=== PATIENT | female | born 1950 | race Hispanic/Latino ===

== ENCOUNTER 2016-09-09 05:54 | Day surgery (SDC) | payer OTHER ==
[2016-09-02 09:21] VITALS: BMI 43.4
[2016-09-09] MEDS ORDERED: Ropivacaine 0.5% 30ML IV ONE (06:45)
[2016-09-09] MEDS ORDERED: Propofol 10 mg/ml Inj (20 ML) ONE (06:48)
[2016-09-09] MEDS ORDERED: Midazolam 2 MG/2 ML VIAL ONE (06:49)
[2016-09-09] MEDS ORDERED: Succinylcholine 200 mg/10 ml Inj IV ONE (06:49)
[2016-09-09] MEDS ORDERED: ePHEDrine 50 mg/ml Inj ONE (06:49)
[2016-09-09] MEDS ORDERED: Rocuronium 10 mg/ml (5 ml) ONE ×2 (06:49→09:21)
[2016-09-09] MEDS ORDERED: Lactated Ringer's 1,000 ML IV ONE ×4 (07:02→10:30)
[2016-09-09] MEDS ORDERED: MethylPREDNISolone Depo 40 mg/ml Inj ONE (07:07)
[2016-09-09] MEDS ORDERED: Absorbable Gelatin Sponge Size 100 ONE (07:08)
[2016-09-09] MEDS ORDERED: Thrombin Topical 5,000 IU Spray Kit ONE (07:08)
[2016-09-09] MEDS ORDERED: Bupivacaine 0.5% Inj(30mL) ONE (07:08)
[2016-09-09] MEDS ORDERED: Lidocaine 1% Inj (20ml) ONE (07:26)
[2016-09-09] MEDS ORDERED: Dexamethasone 4 mg/1 ml ONE (08:42)
[2016-09-09] MEDS ORDERED: Neostigmine Methylsulfate 3mg/3ml Syringe IV ONE (09:21)
[2016-09-09] MEDS ORDERED: Neostigmine Methylsulfate 2 MG/2 ML ML IV ONE (09:21)
[2016-09-09] MEDS ORDERED: Albuterol HFA 90 mcg/actuation (8 g) INH PRN (11:18)
[2016-09-09] MEDS ORDERED: Albuterol 0.083% Inhal Sol (2.5 mg/3 mL) UD INH ONE (11:30)
--- NOTE | 2016-09-09 11:37 | PCM.ANESB1 ---
Interscalene Block - Brachial Plexus Date of Procedure: 09/09/16 Procedure Performed: Interscalene Block of Brachial Plexus Right - Procedure Interscalene Block of Brachial Plexus: This procedure was explained to the patient that it is for post-operative pain management. Consent was obtained after a thorough discussion with the patient regarding the benefits and possible complications of local anesthetic block of the Brachial Plexus at the Interscalene area. The patient was brought to the Operating Room and standard monitors were applied. Time out was held with the circulating nurse to confirm the correct surgery and appropriate block. After applying Oxygen by nasal cannula and administering IV Sedation, the patient's head was gently rotated away from the ___right___operative shoulder and the anterior scalene groove was carefully palpated. The ultrasound transducer was then applied to the skin in the transverse plane and the brachial plexus was visualized lateral to the carotid artery and in between the anterior and middle scalene muscles. After identification,the anterior lateral portion of the neck was prepped with Betadine solution three times and Lidocaine 1% was injected subcutaneously for topical analgesia. At this point, a # 22 gauge Stimuplex 2 inches insulated needle was inserted into the interscalene groove and directed in a caudal and midline direction. The needle was inserted lateral to the ultrasound transducer in-plane towards the brachial plexus in a [id number] direction. Needle advancement was performed carefully under direct ultrasound visualization. Nerve stimulator was used and twitched of the affected extremity including the hand brachialis muscles, biceps and the deltoid was obtained at a current of __0.3___MA. After repeated negative aspiration,___5__cc of 0.5% Ropivacaine___were injected and this was followed with __15___cc of ___0.5__% ____Ropivacaine . Under ultrasound guidance the local anesthetics were observed surrounding the roots of the brachial plexus. The needle was removed intact and sterile dressing was applied. The patient had stable vital signs, was conscious and in no apparent distress. The patient tolerated the interscalene block of the bracheal plexus well with stable vital signs and was prepared for subsequent surgery.
--- NOTE | 2016-09-09 12:19 | PCM.SURG1 ---
Surgeon's Initial Post Op Note - Surgeon's Notes Surgeon: Anabelle Oil Burner Repairer: AMY Diaz Type of Anesthesia: General Endo, Block Regional Anesthesia Administered By: DR Jose Angel Doll Pre-Operative Diagnosis: post traumatic drangement R shoulder Operative Findings: gr 3 tear R roator cuff. Slap lesion- type 2 anterior to posterior. biceps tendon intraraticular avulsion. a/c joint arthroapthy. subacromail impingement. bursitis subacromial space Post-Operative Diagnosis: as above Operation Performed: arthoscopic rotator cuff- r shoulder. arthroscopic labral repair. arthroscopic biceps tenodesis. arthroscopic p[artial distal claviculectomy. arthroscopic aprtial acromioplasty. arthroscopic busectomy/ lysis of adhesions in subacromial; space Specimen/Specimens Removed: cartilage/bone/synovium Estimated Blood Loss: EBL {In ML}: 20 Blood Products Given: N/A Drains Used: No Drains Post-Op Condition: Good Date of Surgery/Procedure: 09/09/16 Time of Surgery/Procedure: 08:55 (time in room/anaesthesia induction time 7;50)
[2016-09-09 13:47] VITALS: RESP 20
[2016-09-09 15:15] VITALS: TEMP 98.2
[2016-09-09 16:36] VITALS: BP 141/64; PULSE 109; O2SAT 93
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
== END 2016-09-09 17:21 | disposition still patient (30) ==
LOC: H.OPSURG 05:54
PROVIDERS: ATTEND Orthopaedic Surgery
DX: M75.41 Impingement syndrome of right shoulder (principal); J45.909 Unspecified asthma, uncomplicated; G47.33 Obstructive sleep apnea (adult) (pediatric); E03.9 Hypothyroidism, unspecified; I34.1 Nonrheumatic mitral (valve) prolapse; M75.51 Bursitis of right shoulder; S43.431A Superior glenoid labrum lesion of right shoulder, initial encounter; X58.XXXA Exposure to other specified factors, initial encounter

== ENCOUNTER 2016-09-09 17:43 | Inpatient (IN) | payer OTHER, MEDICARE ==
[2016-09-09] MEDS ORDERED: Sodium Chloride 0.9% 500 ML IV STA (18:03)
[2016-09-09] MEDS ORDERED: Albuterol-Ipratrop 3 mg / 0.5 (3 ml) UD INH STA (18:05)
[2016-09-09 18:11] VITALS: BMI 31.1
[2016-09-09] MEDS ORDERED: Albuterol-Ipratrop 3 mg / 0.5 (3 ml) UD ONE (18:13)
--- NOTE | 2016-09-09 18:18 | ED PDOC ---
HPI: General Adult Time Seen by Provider: 09/09/16 17:47 History Per: Patient History/Exam Limitations: no limitations Onset/Duration Of Symptoms: Hrs Have you had recent travel within the past 21 days to any of the following countries: [place], [place], [place] or [place]?: No Additional Complaint(s): Vera Castillo is a 66 year old female, with a previous medical history of luciana disease, hypertension, herniated discs, degenerative disc disease and arthritis, who presents to the ED for evaluation of bilateral foot numbness and lower back pain secondary to awakening from surgery earlier today to repair a torn rotator in her right shoulder. She reports additional symptoms of throat burning, headache and shortness of breath mild. She states throat irritation secondary to being intubated and is unsure if latex tube was used. Patient denies any changes in vision, nausea, vomiting, chest pain, cough, calf pain, rash, itching, bowel/urinary incontinence, throat swelling, throat itching or an inability to swallow. Patient reports numbness in the right foot is improving while the numbness in the left foot is gradually moving up the foot into the calf and thigh and she unable to bear weight on it. She was given morphine in the recovery room for the back pain. Had surgery for shoulder tear today. Was in post op being treated for her symptoms by anesthesia. Not able to walk on left leg so sent to the ED. PMD: Past Medical History Reviewed: Historical Data, Nursing Documentation, Vital Signs Vital Signs: Last Vital Signs Temp 98.9 F 09/09/16 18:07 Pulse 114 H 09/09/16 18:07 Resp 18 09/09/16 18:07 BP 135/67 09/09/16 18:07 Pulse Ox 92 L 09/09/16 18:07 - Medical History PMH: Arthritis, Asthma, HTN, Mitral Valve Prolapse, Sleep Apnea Denies: Chronic Kidney Disease Other PMH: luciana disease, herniated disc, degenerative disc disease - Surgical History Other surgeries: shoulder - Family History Family History: States: Unknown Family Hx - Living Arrangements Living Arrangements: With Family - Social History Alcohol: None Drugs: Denies - Home Medications Home Medications: Ambulatory Orders Medication Instructions Recorded Allopurinol [Zyloprim] 300 mg PO DAILY 09/09/16 Cetirizine HCl [Zyrtec] 10 mg PO DAILY 09/09/16 DULoxetine [Cymbalta] 60 mg PO DAILY 09/09/16 Fluticasone/Salmeterol [Advair 1 each PO BID PRN 09/09/16 250-50 Diskus] Gabapentin [Neurontin] 300 mg PO DAILY 09/09/16 Hydrocodone/Ibuprofen 1 tab PO TID PRN 09/09/16 [Hydrocodone-Ibuprofen 7.5-200] Ibuprofen [Motrin Tab] 200 mg PO TID PRN 09/09/16 Methocarbamol [Robaxin] 750 mg PO BID PRN 09/09/16 Metoprolol Tartrate [Metoprolol 25 mg PO BID 09/09/16 Tartrate] Montelukast [Singulair] 10 mg PO DAILY 09/09/16 Oxybutynin [Ditropan Tab] 10 mg PO DAILY 09/09/16 Thyroid,Pork [[place] Thyroid] 120 mg PO DAILY 09/09/16 Valsartan [Diovan] 320 mg PO DAILY 09/09/16 oxyCODONE/Acetaminophen [Percocet 5 - 325 mg PO Q4 PRN 09/09/16 5/325 mg Tab] - Allergies Allergies/Adverse Reactions: Allergies Allergy/AdvReac Type Severity Reaction Status Date / Time latex Allergy RASH Verified 09/09/16 18:07 shellfish derived Allergy SHORTNESS Verified 09/09/16 18:07 OF BREATH amoxicillin [From Augmentin] AdvReac ITCHING Verified 09/09/16 18:07 clavulanic acid AdvReac ITCHING Verified 09/09/16 18:07 [From Augmentin] levofloxacin [From Levaquin] AdvReac ITCHING Verified 09/09/16 18:07 sesame seed AdvReac RASH Verified 09/09/16 18:07 Review of Systems ROS Statement: Except As Marked, All Systems Reviewed And Found Negative Eyes: Negative for: Vision Change ENT: Positive for: Throat Pain. Negative for: Throat Swelling, Other (throat itching ) Cardiovascular: Negative for: Chest Pain Respiratory: Positive for: Shortness of Breath. Negative for: Cough Gastrointestinal: Negative for: Nausea, Vomiting Genitourinary Female: Negative for: Incontinence Musculoskeletal: Positive for: Back Pain (lower ). Negative for: Other (calf pain) Skin: Negative for: Rash Neurological: Positive for: Numbness (bilateral feet ), Headache Physical Exam - Reviewed Nursing Documentation Reviewed: Yes Vital Signs Reviewed: Yes - Physical Exam Appears: Positive for: Well, Non-toxic, No Acute Distress Head Exam: Positive for: ATRAUMATIC, NORMAL INSPECTION, NORMOCEPHALIC Skin: Positive for: Normal Color, Warm, Dry Eye Exam: Positive for: Normal appearance, EOMI, PERRL. Negative for: Nystagmus ENT: Positive for: Normal ENT Inspection. Negative for: Pharyngeal Erythema, Tonsillar Exudate, Tonsillar Swelling Neck: Positive for: Normal, Painless ROM, Supple Cardiovascular/Chest: Positive for: Regular Rate, Rhythm Respiratory: Positive for: Normal Breath Sounds. Negative for: Decreased Breath Sounds, Accessory Muscle Use, Crackles, Rales, Rhonchi, Wheezing, Respiratory Distress Pulses-Dorsalis Pedis (L): 2+ Pulses-Dorsalis Pedis (R): 2+ Gastrointestinal/Abdominal: Positive for: Normal Exam, Bowel Sounds, Soft. Negative for: Tenderness Back: Positive for: Other (diffuse lower back ). Negative for: L CVA Tenderness , R CVA Tenderness, Vertebral Tenderness Extremity: Positive for: Normal ROM, Calf Tenderness (mild in the left leg), Capillary Refill (< 2 seconds ), Other (strength 4/5 in the left leg and 5/5 in the right. deep and light pressure sensation intact of all extremities). Negative for: Pedal Edema, Deformity, Swelling Neurologic/Psych: Positive for: Alert, Oriented. Negative for: Motor/Sensory Deficits - Laboratory Results Result Diagrams: 09/09/16 18:30 - ECG ECG: Positive for: Interpreted By Me, Viewed By Me ECG Rhythm: Positive for: Sinus Tachycardia - Progress ED Course And Treament: 1857: Stable. Dr. Kirkland to take over care. FU on labs and imaging. Medical Decision Making Medical Decision Making: Initial Plan: * CXR * US duplex lower extremity * CT angio chest * B-type natriuretic peptide * Troponin I * labs * EKG * partial thromboplastin time * prothrombin time * ABG shock pane * duoneb * IV NS 500 ml at 100 ml/hr * solumedrol 125 mg IV * peak flow pre/post treatment * reevaluation Scribe Attestation: Documented by Maria Elena Chance, acting as a scribe for David Brandon MD. Provider Scribe Attestation: All medical record entries made by the Scribe were at my direction and personally dictated by me. I have reviewed the chart and agree that the record accurately reflects my personal performance of the history, physical exam, medical decision making, and the department course for this patient. I have also personally directed, reviewed, and agree with the discharge instructions and disposition. Disposition - Clinical Impression Clinical Impression: Paresthesia, Dyspnea - Patient ED Disposition Is Patient to be Admitted: Transfer of Care - Disposition Disposition: Transfer of Care Disposition Time: 18:58 Condition: FAIR Patient Signed Over To: Orlin Kirkland
[2016-09-09 18:34] LABS: ABG ALLEN TEST YES; ARTERIAL BLOOD GAS HCO3 25.6 mmol/L (21-28); ARTERIAL BLOOD GAS MODE 3L NC; ARTERIAL BLOOD GAS PH 7.43 (7.35-7.45); ARTERIAL BLOOD GAS PO2 61 mm/Hg (80-100)
[2016-09-09 18:39] LABS: BASO # 0.1 K/uL (0.0-0.2); BASO % 0.5 % (0.0-2.0); HEMATOCRIT 40.4 % (34.0-47.0); LYMPH # 0.4 K/uL (1.0-4.3); LYMPH % 3.2 % (20.0-40.0); MEAN CELL VOLUME 96.2 fl (81.0-99.0); MEAN CORPUSCULAR HEMOGLOBIN 32.2 pg (27.0-31.0); MEAN CORPUSCULAR HGB CONC 33.5 g/dL (33.0-37.0); MEAN PLATELET VOLUME 8.6 fl (7.2-11.7); MONO # 0.2 K/uL (0.0-0.8); MONO % 1.4 % (0.0-10.0); NEUT # 11.3 K/uL (1.8-7.0); NEUT % 94.9 % (50.0-75.0); PLATELET COUNT 159 K/uL (130-400); RED CELL DISTRIBUTION WIDTH 13.9 % (11.5-14.5); WHITE BLOOD COUNT 11.9 K/uL (4.8-10.8)
[2016-09-09 18:50] LABS: PARTIAL THROMBOPLASTIN TIME 26.2 SECONDS (23.3-32.5)
[2016-09-09 18:55] LABS: ALB/GLOB RATIO 1.7 (1.0-2.1); ALKALINE PHOSPHATASE 57 U/L (38-126); ALT/SGPT 69 U/L (9-52); AST/SGOT 56 U/L (14-36); BILIRUBIN,TOTAL 0.4 mg/dl (0.2-1.3); BLOOD UREA NITROGEN 16 mg/dl (7-17); CARBON DIOXIDE 23 mmol/L (22-30); CHLORIDE 95 mmol/L (98-107); GFR AFRICAN-AMERICAN > 60; GLUCOSE,RANDOM 154 mg/dL (65-105); POTASSIUM 4.5 MMOL/L (3.6-5.0); SODIUM 132 mmol/l (132-148); TOTAL PROTEIN 7.1 G/DL (6.3-8.2)
[2016-09-09] MEDS ORDERED: Iodixanol 320 MG/ML 100 ML BOTTLE IV ONE (18:56)
[2016-09-09] MEDS ORDERED: Sodium Chloride 0.9% 50 ML IV ONE (18:57)
[2016-09-09 19:10] LABS: NEUTROPHIL 90 % (42-75); TOTAL CELLS COUNTED 100
[2016-09-09 19:12] LABS: LARGE PLATELETS PRESENT
--- NOTE | 2016-09-09 19:22 | US ---
EXAM: US Duplex Bilateral Lower Extremity Veins CLINICAL HISTORY: 66 years old, female; Pain; Leg, lower; Bilateral; Additional info: R/O dvt TECHNIQUE: Real-time ultrasound scan of the veins of the bilateral lower extremities with color Doppler flow, spectral waveform analysis and compression. EXAM DATE/TIME: 09/09/2016 6:02 PM COMPARISON: There are no prior studies for comparison. FINDINGS: Right deep veins: Common femoral, superficial femoral, popliteal and posterior tibial veins were evaluated. All veins examined are compressible. There are no intraluminal filling defects. There is expected blood flow on Doppler imaging. There is change in waveform with augmentation. Left deep veins: Common femoral, superficial femoral, popliteal and posterior tibial veins were evaluated. All veins examined are compressible. There are no intraluminal filling defects. There is expected blood flow on Doppler imaging. There is change in waveform with augmentation. Impression: No deep venous thrombosis in the visualized vascular segments of the lower extremities
--- NOTE | 2016-09-09 20:28 | CT ---
EXAM: CT Angiography Chest With Intravenous Contrast CLINICAL HISTORY: 66 years old, female; Signs and symptoms; Shortness of breath and other: Chest pain; Patient HX: Surgery on rt rotator cuff today; Additional info: Chest pain. Sent phy. Doc with request TECHNIQUE: Axial computed tomographic angiography images of the chest with intravenous contrast using pulmonary embolism protocol. This CT exam was performed using one or more of the following dose reduction techniques: automated exposure control, adjustment of the mA and/or kV according to patient size, and/or use of iterative reconstruction technique. MIP reconstructed images were created and reviewed. Coronal and sagittal reformatted images were created and reviewed. CONTRAST: 95 mL of [id number] administered intravenously. EXAM DATE/TIME: 09/09/2016 6:03 PM COMPARISON: There are no prior studies for comparison. FINDINGS: Artifacts: Motion artifact degrades image quality.Streak artifact degrades image quality. Heart, aorta and Pulmonary arteries: Heart size is normal. There is no pericardial effusion. Aorta is normal in caliber. Streak and motion limit evaluation of pulmonary arteries. Bolus timing limits evaluation pulmonary arteries. There are no central pulmonary emboli. Peripheral vessels cannot be adequately evaluated. Lungs and pleural spaces: Trachea and main bronchi are patent. Upper lung zones are clear of focal infiltrate. There is minimal dependent atelectasis. There is elevation of the right diaphragm with partial right middle lobe atelectasis. There is partial right lower lobe atelectasis. There is minimal atelectasis at the left base. There is linear scarring at the left base. There are no effusions. Mediastinum: There is fatty infiltration of the mediastinum. There mildly prominent mediastinal nodes. There is no hilar adenopathy. Visualized portion the esophagus is unremarkable. Thyroid: Thyroid is not optimally demonstrated. Bones/joints: There is small clips in the right humeral head. There are degenerative changes in the osseus structures. There is deformity of the sternum. Soft tissues: unremarkable Upper abdomen: There are no acute abnormalities in the visualized portion of the abdomen. IMPRESSION: Partial right middle and right lower lobe atelectasis; limited evaluation of pulmonary arteries due to bolus timing, streak and motion, no central pulmonary embolus peripheral vessels cannot be evaluated Additional findings as described above.
[2016-09-09] MEDS ORDERED: Enoxaparin 100 mg Syringe SC STA (20:49)
--- NOTE | 2016-09-09 21:19 | ED PDOC ---
- Laboratory Results Result Diagrams: 09/09/16 18:30 09/09/16 18:30 - ECG O2 Sat by Pulse Oximetry: 95 Medical Decision Making Medical Decision Makin:00 Patient was signed out to me pending imaging results, ED workup and final disposition. 19:21 US duplex FINDINGS: Right deep veins: Common femoral, superficial femoral, popliteal and posterior tibial veins were evaluated. All veins examined are compressible. There are no intraluminal filling defects. There is expected blood flow on Doppler imaging. There is change in waveform with augmentation. Left deep veins: Common femoral, superficial femoral, popliteal and posterior tibial veins were evaluated. All veins examined are compressible. There are no intraluminal filling defects. There is expected blood flow on Doppler imaging. There is change in waveform with augmentation. Impression: No deep venous thrombosis in the visualized vascular segments of the lower extremities 20:27 CT angion FINDINGS: Artifacts: Motion artifact degrades image quality.Streak artifact degrades image quality. Heart, aorta and Pulmonary arteries: Heart size is normal. There is no pericardial effusion. Aorta is normal in caliber. Streak and motion limit evaluation of pulmonary arteries. Bolus timing limits evaluation pulmonary arteries. There are no central pulmonary emboli. Peripheral vessels cannot be adequately evaluated. Lungs and pleural spaces: Trachea and main bronchi are patent. Upper lung zones are clear of focal infiltrate. There is minimal dependent atelectasis. There is elevation of the right diaphragm with partial right middle lobe atelectasis. There is partial right lower lobe atelectasis. There is minimal atelectasis at the left base. There is linear scarring at the left base. There are no effusions. Mediastinum: There is fatty infiltration of the mediastinum. There mildly prominent mediastinal nodes. There is no hilar adenopathy. Visualized portion the esophagus is unremarkable. Thyroid: Thyroid is not optimally demonstrated. Bones/joints: There is small clips in the right humeral head. There are degenerative changes in the osseus structures. There is deformity of the sternum. Soft tissues: unremarkable Upper abdomen: There are no acute abnormalities in the visualized portion of the abdomen. IMPRESSION: Partial right middle and right lower lobe atelectasis; limited evaluation of pulmonary arteries due to bolus timing, streak and motion, no central pulmonary embolus peripheral vessels cannot be evaluated Additional findings as described above. 20:56 Patient was seen and examined at bedside. She remains hypoxic, tachycardic and reports being unable to take in a deep breath. Patient will be treated for clinical pulmonary embolism and will be admitted to obs-Tele Scribe Attestation: Documented by Maria Elena Chance, acting as a scribe for Orlin Kirkland MD. Provider Scribe Attestation: All medical record entries made by the Scribe were at my direction and personally dictated by me. I have reviewed the chart and agree that the record accurately reflects my personal performance of the history, physical exam, medical decision making, and the department course for this patient. I have also personally directed, reviewed, and agree with the discharge instructions and disposition. Disposition - Clinical Impression Clinical Impression: Paresthesia, Dyspnea - POA Present On Arrival: None - Disposition Disposition: Hospitalized as Observation Patient Disposition Time: 21:00 Condition: FAIR
[2016-09-10] MEDS ORDERED: IBUPROFEN PO PRN (00:28)
[2016-09-10] MEDS ORDERED: Fluticasone-Salmeterol 250-50mcg Diskus INH PRN (00:28)
[2016-09-10] MEDS ORDERED: Methocarbamol 750 MG TAB PO PRN (00:28)
[2016-09-10] MEDS ORDERED: HYDROCODONE PO PRN (00:28)
[2016-09-10] MEDS: Oxycodone/Acetaminophen 5/325 mg Tab PO PRN ×4 (00:55→17:49)
[2016-09-10] MEDS ORDERED: Albuterol-Ipratrop 3 mg / 0.5 (3 ml) UD INH STA ×2 (01:02→11:22)
[2016-09-10] MEDS ORDERED: Enoxaparin 80 mg Syringe SC SCH (09:00)
--- NOTE | 2016-09-10 10:41 | CP.PCM.CON ---
History of Present Illness - History of Present Illness History of Present Illness: Asked to see this 66 year old female who was admitted from the emergency room because of weakness in the LE's, but also complaining of SOB 4 hours after having orthopedic surgery of the right rotator cuff. A pulmonary CTA was inconclusive for PE and a V/Q lung scan is currently pending. She does have a history of 'bronchospasm' as well as allergic rhinitis and posterior rhinorrhea , using LABA/ICS at home. She also has a history od JOSHUA for many years using nCPAP at home on a nightly basis. She does have regular medical followup as an outpatient and is compliant with all medications and equipment. Her CT scan now did show a right basal area of infiltrate/atelectasis, but was otherwise relatively unremarkable. A venous duplex scan of the LE's did not reveal any DVT. 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) Chewing Tobacco Use: No Cigar Use: No Alcohol: Social Drugs: Denies - CARDIAC Hx Hypertension: Yes Hx Mitral Valve Prolapse: Yes - PULMONARY Hx Asthma: Yes Hx Sleep Apnea: Yes - NEUROLOGICAL Other/Comment: NUMBNESS RIGHT HAND - HEENT Hx HEENT Problems: No - RENAL Hx Chronic Kidney Disease: No - ENDOCRINE/METABOLIC Hx Endocrine Disorders: Yes (Sara disease) - HEMATOLOGICAL/ONCOLOGICAL Hx Blood Disorders: No - INTEGUMENTARY Hx Dermatological Problems: No - MUSCULOSKELETAL/RHEUMATOLOGICAL Hx Arthritis: Yes Hx Falls: No Hx Herniated Disk: Yes - GASTROINTESTINAL Hx Gastrointestinal Disorders: No - GENITOURINARY/GYNECOLOGICAL Hx Genitourinary Disorders: No - PSYCHIATRIC Hx Substance Use: No - SURGICAL HISTORY Hx Surgeries: Yes Hx Hysterectomy: Yes (2001) Hx Joint Replacement: Yes (BILATERAL KNEE REPLACEMENT 2010) Other/Comment: REMOVAL OF LEFT TAMPLE ARTERY 2011 - ANESTHESIA Hx Anesthesia: Yes Hx Anesthesia Reactions: Yes (VOMITTING) Hx Malignant Hyperthermia: No Meds Allergies/Adverse Reactions: Allergies Allergy/AdvReac Type Severity Reaction Status Date / Time latex Allergy RASH Verified 09/09/16 18:07 shellfish derived Allergy SHORTNESS Verified 09/09/16 18:07 OF BREATH amoxicillin [From Augmentin] AdvReac ITCHING Verified 09/09/16 18:07 clavulanic acid AdvReac ITCHING Verified 09/09/16 18:07 [From Augmentin] levofloxacin [From Levaquin] AdvReac ITCHING Verified 09/09/16 18:07 sesame seed AdvReac RASH Verified 09/09/16 18:07 - Medications Medications: Current Medications Allopurinol (Zyloprim) 300 mg PO DAILY [facility] Last Admin: 09/10/16 10:00 Dose: 300 mg Duloxetine HCl (Cymbalta) 60 mg PO DAILY [facility] Last Admin: 09/10/16 09:55 Dose: 60 mg Enoxaparin Sodium (Lovenox) 70 mg SC DAILY [facility] PRN Reason: Protocol Gabapentin (Neurontin) 300 mg PO DAILY [facility] Last Admin: 09/10/16 09:59 Dose: 300 mg Home Med (Hydrocodone/Ibuprofen [Hydrocodone-Ibuprofen 7.5-200]) 1 tab PO BID PRN PRN Reason: Pain, moderate (4-7) Ibuprofen (Motrin Oral Susp) 200 mg PO TID PRN PRN Reason: Pain, moderate (4-7) Loratadine (Claritin) 10 mg PO DAILY [facility] Last Admin: 09/10/16 09:54 Dose: 10 mg Methocarbamol (Robaxin) 750 mg PO BID PRN PRN Reason: Pain, moderate (4-7) Metoprolol Tartrate (Lopressor) 25 mg PO BID [facility] Last Admin: 09/10/16 09:57 Dose: 25 mg Montelukast Sodium (Singulair) 10 mg PO DAILY [facility] Last Admin: 09/10/16 09:59 Dose: 10 mg Oxybutynin Chloride (Ditropan Tab) 10 mg PO DAILY [facility] Last Admin: 09/10/16 09:56 Dose: 10 mg Oxycodone/Acetaminophen (Percocet 5/325 Mg Tab) 1 tab PO Q4 PRN PRN Reason: Pain, moderate (4-7) Stop: 09/13/16 00:47 Last Admin: 09/10/16 09:04 Dose: 1 tab Fluticasone/Salmeterol (Advair Diskus 250/50) 1 puff INH BID [facility] Thyroid ([place] Thyroid) 120 mg PO DAILY [facility] Valsartan (Diovan) 320 mg PO DAILY [facility] Last Admin: 09/10/16 09:56 Dose: 320 mg Physical Exam - Additional Findings Additional findings: Obese female in no acute distress, cooperative with the exam. Speech is fluent and memory is intact. Flushed facies, no cyanosis or jaundice. No palpable lymphadenopathy. RUE immobilized in sling, shoulder dressing intact. Small varicosities of both ankles noted. No calf tenderness, no palpable venous cords. Neck is supple and trachea midline, no visible JVD. No dullness on chest percussion anteriorly. Breath sounds are present bilaterally with bronchial breathing and egophony in the RLL posteriorly. No audible wheezing, occasional dependant rhonchi, rare dependant dry rales. Heart sounds are well heard, rhythm regular. Results - Vital Signs Recent Vital Signs: Last Vital Signs Temp 98.2 F 09/10/16 08:35 Pulse 90 09/10/16 08:35 Resp 18 09/10/16 08:35 BP 103/66 09/10/16 09:57 Pulse Ox 92 L 09/10/16 08:35 - Labs Result Diagrams: 09/09/16 18:30 09/09/16 18:30 Assessment & Plan (1) Pulmonary infiltrate present on computed tomography Status: Acute Priority: High Comment: Right basal infiltrate with suspected volume loss; agree that acute PE needs further investigation to rule it out. Likely atelectatic segment with potential pneumonia in view of recent surgery/anesthesia and drying effect of anticholinergic medications taken as an outpatient. - Assessment and Plan (Free Text) Plan: Will follow,thank you. - Date & Time Date: 09/10/16 Time: 10:51
[2016-09-10] MEDS: Fluticasone-Salmeterol 250-50mcg Diskus INH SCH ×2 (11:40→17:52)
--- NOTE | 2016-09-10 11:40 | RAD ---
HISTORY: dyspnea COMPARISON: No prior. FINDINGS: LUNGS: Right lower lobe opacity may represent some combination of atelectasis/infiltrate and effusion. . Central pulmonary vasculature is slightly increased PLEURA: No significant pleural effusion identified, no pneumothorax apparent. CARDIOVASCULAR: Cardiomegaly. OSSEOUS STRUCTURES: Small metallic fixation anchor overlies right humeral head. Mild degenerative changes both shoulder girdles. Mild multilevel degenerative spondylosis of the thoracic spine VISUALIZED UPPER ABDOMEN: Normal. OTHER FINDINGS: None. IMPRESSION: Right lower lobe opacity may represent some combination of atelectasis/infiltrate and effusion. Central pulmonary vascular slightly increased Marked cardiomegaly.
--- NOTE | 2016-09-10 13:50 | CP.PCM.HP ---
History of Present Illness - History of Present Illness History of Present Illness: 66 year old female w/ PMHx of luciana disease, hypertension, herniated discs, degenerative disc disease and arthritis, who presented to the ED for evaluation of bilateral foot numbness and lower back pain after surgery earlier today to repair a torn rotator in her right shoulder. Also she reported headache and shortness of breath. Patient denied any changes in vision, nausea, vomiting, chest pain, cough, calf pain, rash, itching, bowel/urinary changes. Patient was admitted due to clinical signs of PE (hypoxia/tachycardia) though CT scan of Chest was inconclusive. Patient was seen and examined this morning. Patient reports improvement of symptoms though leg numbness, hypoxia continue to persist. No pain reported. Present on Admission - Present on Admission Any Indicators Present on Admission: No Review of Systems - Review of Systems All systems: reviewed and no additional remarkable complaints except - Respiratory Respiratory: Dyspnea - Neurological Neurological: Paresthesias 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) Chewing Tobacco Use: No Cigar Use: No Alcohol: Social Drugs: Denies - CARDIAC Hx Hypertension: Yes Hx Mitral Valve Prolapse: Yes - PULMONARY Hx Asthma: Yes Hx Sleep Apnea: Yes - NEUROLOGICAL Other/Comment: NUMBNESS RIGHT HAND - HEENT Hx HEENT Problems: No - RENAL Hx Chronic Kidney Disease: No - ENDOCRINE/METABOLIC Hx Endocrine Disorders: Yes (Luciana disease) - HEMATOLOGICAL/ONCOLOGICAL Hx Blood Disorders: No - INTEGUMENTARY Hx Dermatological Problems: No - MUSCULOSKELETAL/RHEUMATOLOGICAL Hx Arthritis: Yes Hx Falls: No Hx Herniated Disk: Yes - GASTROINTESTINAL Hx Gastrointestinal Disorders: No - GENITOURINARY/GYNECOLOGICAL Hx Genitourinary Disorders: No - PSYCHIATRIC Hx Substance Use: No - SURGICAL HISTORY Hx Surgeries: Yes Hx Hysterectomy: Yes (2001) Hx Joint Replacement: Yes (BILATERAL KNEE REPLACEMENT 2010) Other/Comment: REMOVAL OF LEFT TAMPLE ARTERY 2011 - ANESTHESIA Hx Anesthesia: Yes Hx Anesthesia Reactions: Yes (VOMITTING) Hx Malignant Hyperthermia: No Meds Allergies/Adverse Reactions: Allergies Allergy/AdvReac Type Severity Reaction Status Date / Time latex Allergy RASH Verified 09/09/16 18:07 shellfish derived Allergy SHORTNESS Verified 09/09/16 18:07 OF BREATH amoxicillin [From Augmentin] AdvReac ITCHING Verified 09/09/16 18:07 clavulanic acid AdvReac ITCHING Verified 09/09/16 18:07 [From Augmentin] levofloxacin [From Levaquin] AdvReac ITCHING Verified 09/09/16 18:07 sesame seed AdvReac RASH Verified 09/09/16 18:07 Physical Exam - Constitutional Appears: Well, Non-toxic, No Acute Distress - Head Exam Head Exam: ATRAUMATIC, NORMAL INSPECTION, NORMOCEPHALIC - Eye Exam Eye Exam: EOMI, Normal appearance, PERRL - Neck Exam Neck exam: Positive for: Normal Inspection - Respiratory Exam Respiratory Exam: Clear to Auscultation Bilateral, NORMAL BREATHING PATTERN. absent: Rales, Rhonchi, Wheezes - Cardiovascular Exam Cardiovascular Exam: REGULAR RHYTHM, +S1, +S2 - GI/Abdominal Exam GI & Abdominal Exam: Normal Bowel Sounds, Soft. absent: Tenderness Additional comments: obese - Extremities Exam Extremities exam: Positive for: normal inspection (except for surgical dressing on right shoulder, cdi). Negative for: calf tenderness, pedal edema - Neurological Exam Neurological exam: Alert, Oriented x3 - Psychiatric Exam Psychiatric exam: Normal Affect, Normal Mood - Skin Skin Exam: Dry, Intact, Normal Color, Warm Results - Vital Signs Recent Vital Signs: Last Vital Signs Temp 98.5 F 09/10/16 12:36 Pulse 88 09/10/16 12:36 Resp 18 09/10/16 12:36 BP 107/63 09/10/16 12:36 Pulse Ox 93 L 09/10/16 12:36 - Labs Result Diagrams: 09/09/16 18:30 09/09/16 18:30 Assessment & Plan (1) Dyspnea Assessment and Plan: s/p right rotator cuff repair POD #1 associated with tachycardia (now resolving) CT scan inconclusive for PE, will obtain V/Q scan today Lovenox at treatment dose Pulmonary consulted, appreciate recommendations Monitor resp. status Status: Acute (2) S/P rotator cuff repair Assessment and Plan: s/p right shoulder rotator cuff repair POD #[address] Anabelle Ahn consulted, appreciate recommendations Pain control as needed Status: Acute (3) Pulmonary infiltrate present on computed tomography Assessment and Plan: pulmonary consulted, appreciate recommendations Status: Acute Priority: High (4) Paresthesia Assessment and Plan: Bilateral lower extremities, no motor deficits Neurology consulted, appreciated recommendations u/s for DVTs negative Status: Acute
--- NOTE | 2016-09-10 15:43 | NM ---
COMPARISON: September 09, 2016. CT angiogram TECHNIQUE: 35.65 mCi technetium 99-m DTPA aerosol. 4.65 mCI technetium 99-m MAA administered intravenously. FINDINGS: VENTILATION COMPONENT: Ventilation defect at the right base corresponds to findings on recent CT angiogram and chest x-ray PERFUSION COMPONENT: Matched defects right lower lobe, right middle lobe. IMPRESSION: Intermediate probability ventilation perfusion scan for pulmonary embolism. Triple matched defect corresponding to the right lower lobe right middle lobe. The modified PIOPED criteria for diagnosis of PE determine the probability of PE following a VQ scan : Levels of probability Intermediate Probability triple match : Solitary moderate-large matching segmental defect with matching radiograph difficult to characterize as high probability or low probability
[2016-09-10] MEDS: THYROID 30 MG TAB PO SCH (16:00)
[2016-09-10] MEDS: Enoxaparin 100 mg Syringe SC SCH ×2 (16:01→23:57)
--- NOTE | 2016-09-10 16:21 | CON ---
DATE: 09/10/2016 CHIEF COMPLAINT: Paresthesias, especially in the bilateral feet as well as the left leg and left leg heaviness. HISTORY OF PRESENTING ILLNESS: A 66-year-old woman with past medical history of Sara's disease on [place] Thyroid, hypertension, cervical and lumbar herniated disks, degenerative disk disease, arth ritis who presented to the Emergency Room for evaluation for bilateral foot numbness and lower back p ain. She said the lower back pain has been chronic in nature, but after her repair and prolonged pos ition of her right shoulder rotator cuff surgery, she started to have numbness of her leg and tinglin g sensation, especially her left leg more than her right and left leg felt heavier. She is chronical ly deconditioned and overweight for her height and weight. Currently, she was seen by pulmonology fo r her hypoxia and tachycardia and her CT scan of the chest was inconclusive, was going for a VQ scan. Currently, she still has some chronic low back pain radiating down the left leg with some paresthes ias and numbness over both feet. She is undergoing a CAT scan of her lumbosacral spine. She is on m ethocarbamol, gabapentin and Cymbalta for neuropathic pain. PAST MEDICAL HISTORY: Sara's disease, hypertension, chronic herniated disk in cervical and lumb ar area, degenerative disk disease, arthritis. REVIEW OF SYSTEMS: A 14-point is negative except for above in the HPI. ALLERGIES: LATEX, SHELLFISH AMOXICILLIN/CLAVULANIC ACID. MEDICATIONS: Reviewed via nurse's reconciliation sheet. SOCIAL HISTORY: No illicit drug use, smoking, or ETOH abuse. FAMILY HISTORY: Noncontributory. PHYSICAL EXAMINATION: VITAL SIGNS: Temperature 98, pulse rate 88, blood pressure 107/63, respiratory rate of 18, oxygen sa turation 93% via room air. GENERAL: The patient is lying in bed, in no acute distress. HEENT: Atraumatic, normocephalic. PERRLA. Extraocular muscles intact. NECK: Supple, no JVD, no adenopathy noted. LUNGS: Clear to auscultation. No adventitious sounds. HEART: S1, S2, normal rate and rhythm. No murmurs, rubs or gallops. ABDOMEN: Soft, nontender, nondistended. Bowel sounds present. She is obese. EXTREMITIES: Positive for normal inspection except for some surgical dressing on her right shoulder for rotator cuff surgery. Otherwise, no pedal edema, no clubbing. Peripheral pulses 2+ felt bilater ally. NEUROLOGIC: The patient is alert, oriented to person, place, month and year. Speech is fluent, with out any errors. Cranial nerves II-XII intact. MOTOR: Moves all extremities equally, but has difficulty lifting up both legs in the air due to low back pain. She feels like her left leg is heavy. Toes are downgoing bilaterally. SENSORY: Decreased light touch and pinprick up to the calves bilaterally. Decreased vibration of th e toes. DEEP TENDON REFLEXES: 2+ throughout, 1 at the knees and absent at the ankles. COORDINATION: [id number] intact. GAIT: Deferred for now. LABORATORIES: Sodium is 132, potassium 4.5, chloride 95, carbon dioxide 23, BUN is 16, creatinine 0. 6, random glucose 154. ASSESSMENT AND PLAN: This is a 66-year-old obese woman with past medical history of chronic lumbosac ral pain as well as chronic cervical pain with history of herniated disk, hypertension, degenerative disk disease as well as arthritis, status post right shoulder rotator cuff surgery. After surgery, ken flores, a few hours later from prolonged position, developed low back pain radiating down both legs and paresthesias, especially in the left leg and foot more than the right and heaviness of left leg. Likely, her presentation is secondary to her chronic lumbosacral disease from prolonged positions d uring surgery causing paresthesias. At this time, I recommend: 1. Continue with methocarbamol and her dosage of Cymbalta. In addition, we can increase her gabapen tin to 300 mg p.o. t.i.d. for neuropathic pain relief. Can also add alpha lipoic acid 600 mg p.o. b. i.d. for neuropathic pain from a natural aspect. 2. Will need physical therapy and may need some subacute rehabilitation for gait and balance and mus leonie strengthening also for lumbosacral exercises. 3. Counseled on weight reduction. 4. 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 5. At this time, continue with current present medical management. No further neurological workup n eeded at this time. Will sign off. Please reconsult as necessary. Dwayne Cedillo MD cc: [phone] TT: 09/10/2016 16:20:51 Confirmation # [id number] Dictation # [id number] en
--- NOTE | 2016-09-10 16:30 | CT ---
PROCEDURE: CT Lumbar Spine without contrast HISTORY: Lower extremity radiculopathy COMPARISON: No prior study available comparison. TECHNIQUE: Axial computed tomography images were obtained of the lumbar spine without the use of intravenous contrast. Coronal and sagittal reformatted images were created and reviewed. Radiation dose: Total exam DLP = 1375.99 mGy-cm. This CT exam was performed using one or more of the following dose reduction techniques: Automated exposure control, adjustment of the mA and/or kV according to patient size, and/or use of iterative reconstruction technique. FINDINGS: VERTEBRAE: Current study reveals no acute compression fractures nor retropulsed fragments. Vertebral bodies exhibit relatively normal stature. There is mild dextroscoliosis centered at approximately the L2-L3 level. Slight posterior subluxation L2 over L3 and and L1 over L2. The remaining vertebral bodies otherwise exhibit relatively normal alignment. Facets normally aligned. Multilevel degenerative spondylosis present. DISCS/SPINAL CANAL/NEURAL FORAMINA: Multilevel degenerative is present. L1-2: Marked disc space narrowing with vacuum disc phenomena and endplate eburnation. . There is slight uncovering of the posterior inferior surface of the disc with mild broad-based bulge of the posterior annulus. The overall central canal does appear adequate. Facets are mildly hypertrophic. The exit foramina appear narrowed along the proximal margins. Left lateral syndesmophyte is present. At the L2-L3 level, there is also marked disc space narrowing with vacuum disc phenomena and mild endplate eburnation slight uncovering of the posterior inferior surface of the disc with small broad-based ridge complex. Left lateral syndesmotic fight formation is present. Central canal appears adequate. Facet joints are hypertrophic Exit foramina are stenotic on the left and adequate on the right. At the L3-L4 level, there is mild posterior disc space narrowing. Small broad-based disc bulge ridge complex results in some flattening of the ventral surface of the thecal sac. Central canal does appear adequate. Facets are hypertrophic. . Exit foramina appear adequate. At the L4-L5 level, there is mild posterior disc space narrowing. Small amount of vacuum disc phenomena is present. Small broad-based disc bulge ridge complex with moderate to fairly significant hypertrophic facets. Changes result in bilateral lateral cyst recess stenosis. The facets also encroach and compressed post lateral borders of the thecal sac. Exit foramina appear marginal to adequate. The L5-S1 level, there is disc space narrowing more so along the posterior disc margin and vacuum disc phenomena. Small central and bilateral slightly larger on the left than right disc bulge flattens the ventral surface of the thecal sac. Facets are quite hypertrophic at this level. The overall central canal appears adequate. Exit foramina are also adequate on the left and stenotic on the right. PARASPINAL SOFT TISSUES: Unremarkable. OTHER FINDINGS: None. IMPRESSION: No acute compression fractures. Multilevel degenerative spondylosis on. There is also on slight post to subluxation L1 over L2 and L2 over L3 with mild to moderate dextroscoliosis as detailed above.
[2016-09-10] MEDS: Albuterol-Ipratrop 3 mg / 0.5 (3 ml) UD INH SCH (19:15)
[2016-09-11] MEDS: Oxycodone/Acetaminophen 5/325 mg Tab PO PRN ×6 (00:22→19:05)
[2016-09-11 06:49] LABS: HEMATOCRIT 37.2 % (34.0-47.0); MEAN CELL VOLUME 95.9 fl (81.0-99.0); MEAN CORPUSCULAR HEMOGLOBIN 32.9 pg (27.0-31.0); MEAN CORPUSCULAR HGB CONC 34.3 g/dL (33.0-37.0); RED CELL DISTRIBUTION WIDTH 13.9 % (11.5-14.5); WHITE BLOOD COUNT 11.1 K/uL (4.8-10.8)
[2016-09-11 07:35] LABS: ALB/GLOB RATIO 1.5 (1.0-2.1); ALKALINE PHOSPHATASE 57 U/L (38-126); ALT/SGPT 50 U/L (9-52); AST/SGOT 33 U/L (14-36); BILIRUBIN,TOTAL 0.5 mg/dl (0.2-1.3); BLOOD UREA NITROGEN 12 mg/dl (7-17); CALCIUM 8.8 mg/dL (8.4-10.2); CARBON DIOXIDE 28 mmol/L (22-30); CHLORIDE 101 mmol/L (98-107); GFR AFRICAN-AMERICAN > 60; GLUCOSE,RANDOM 111 mg/dL (65-105); POTASSIUM 4.2 MMOL/L (3.6-5.0); SODIUM 136 mmol/l (132-148); TOTAL PROTEIN 6.4 G/DL (6.3-8.2)
[2016-09-11] MEDS: Albuterol-Ipratrop 3 mg / 0.5 (3 ml) UD INH SCH (07:58)
[2016-09-11] MEDS ORDERED: Enoxaparin 80 mg Syringe SC SCH (09:00)
[2016-09-11] MEDS: THYROID 30 MG TAB PO SCH (09:22)
[2016-09-11] MEDS: Fluticasone-Salmeterol 250-50mcg Diskus INH SCH ×2 (09:22→16:39)
[2016-09-11] MEDS: Enoxaparin 100 mg Syringe SC SCH (09:29)
--- NOTE | 2016-09-11 09:51 | CP.PCM.PN ---
Subjective - Date & Time of Evaluation Date of Evaluation: 09/11/16 Time of Evaluation: 09:41 - Subjective Subjective: Seen on AM rounds in telemetry. Using her own nCPAP device overnight, slept well, more rested. Vital signs are stable, remains afebrile, oxygenation is good. Lung scan was also inconclusive with a matched ventilation and perfusion defect in the right lower lobe. On exam there is slightly better air entry in the right base posteriorly, but bronchial breathing and egophony are still present there. No audible wheezes are heard, no rub, few medium rales are present posteriorly. On further review of her initial CTA there is definitely and area of consolidation in the right lung base posteriorly with elevation of the right hemidiaphragm. I would treat her for pneumonia and atelectasis with comorbid JOSHUA and 'asthma'. I still feel the probability of PE is low in this patient based on the radiographic findings. Maintain LMWH for DVT prophylaxis while hospitalized and use ASA 325MG daily after discharge. Objective - Vital Signs/Intake and Output Vital Signs (last 24 hours): Temp Pulse Resp BP Pulse Ox 98.5 F 79 16 135/81 95 09/11/16 08:24 09/11/16 09:26 09/11/16 08:24 09/11/16 09:26 09/11/16 08:24 - Medications Medications: Current Medications Albuterol Sulfate (Albuterol 0.083% Inhal April (2.5 Mg/3 Ml) Ud) 2.5 mg INH RQ4 PRN PRN Reason: Shortness of Breath Allopurinol (Zyloprim) 300 mg PO DAILY [facility] Last Admin: 09/11/16 09:30 Dose: 300 mg Duloxetine HCl (Cymbalta) 60 mg PO DAILY [facility] Last Admin: 09/11/16 09:25 Dose: 60 mg Enoxaparin Sodium (Lovenox) 90 mg SC Q12 [facility] PRN Reason: Protocol Last Admin: 09/11/16 09:29 Dose: 90 mg Gabapentin (Neurontin) 300 mg PO DAILY [facility] Last Admin: 09/11/16 09:30 Dose: 300 mg Home Med (Hydrocodone/Ibuprofen [Hydrocodone-Ibuprofen 7.5-200]) 1 tab PO BID PRN PRN Reason: Pain, moderate (4-7) Ipratropium [place] (Atrovent) 0.5 mg IH RQID [facility] Loratadine (Claritin) 10 mg PO DAILY [facility] Last Admin: 09/11/16 09:24 Dose: 10 mg Metoprolol Tartrate (Lopressor) 25 mg PO BID [facility] Last Admin: 09/11/16 09:26 Dose: 25 mg Montelukast Sodium (Singulair) 10 mg PO DAILY [facility] Last Admin: 09/11/16 09:30 Dose: 10 mg Oxybutynin Chloride (Ditropan Tab) 10 mg PO DAILY [facility] Last Admin: 09/11/16 09:26 Dose: 10 mg Oxycodone/Acetaminophen (Percocet 5/325 Mg Tab) 1 tab PO Q4 PRN PRN Reason: Pain, moderate (4-7) Stop: 09/14/16 00:15 Last Admin: 09/11/16 09:21 Dose: 1 tab Oxycodone/Acetaminophen (Percocet 5/325 Mg Tab) 2 tab PO Q6 PRN PRN Reason: Pain, severe (8-10) Stop: 09/14/16 00:16 Last Admin: 09/11/16 06:31 Dose: 2 tab Fluticasone/Salmeterol (Advair Diskus 250/50) 1 puff INH BID [facility] Last Admin: 09/11/16 09:22 Dose: 1 inhaler Thyroid ([place] Thyroid) 120 mg PO DAILY [facility] Last Admin: 09/11/16 09:22 Dose: 120 mg Valsartan (Diovan) 320 mg PO DAILY [facility] Last Admin: 09/11/16 09:25 Dose: 320 mg - Labs Labs: 09/11/16 05:20 09/11/16 05:20 PT 10.3 SECONDS (9.6-11.2) 09/09/16 18:30 INR 0.99 (0.92-1.08) 09/09/16 18:30 APTT 26.2 SECONDS (23.3-32.5) 09/09/16 18:30 Assessment and Plan (1) Pulmonary infiltrate present on computed tomography Status: Acute (2) Pneumonia Status: Acute (3) Atelectasis Status: Acute
[2016-09-11] MEDS: Ipratropium 0.02% Inhal Soln (0.5 mg/2.5 ml) UD IH SCH ×3 (12:08→19:29)
--- NOTE | 2016-09-11 15:36 | CP.PCM.PN ---
Subjective - Date & Time of Evaluation Date of Evaluation: 09/11/16 Time of Evaluation: 07:33 - Subjective Subjective: Patient seen and examined at bedside. No acute events overnight. Patient dyspnea improving. Patient with improving bilateral lower extremity numbness, right is no long existent. Patient seen by Pulmonary and Neurology. VQ scan completed yesterday. No chest pain, abdominal pain. Did not participate in PT yesterday. Objective - Vital Signs/Intake and Output Vital Signs (last 24 hours): Temp Pulse Resp BP Pulse Ox 97.6 F 79 18 127/75 96 09/11/16 12:34 09/11/16 12:34 09/11/16 12:34 09/11/16 12:34 09/11/16 12:34 - Medications Medications: Current Medications Albuterol Sulfate (Albuterol 0.083% Inhal April (2.5 Mg/3 Ml) Ud) 2.5 mg INH RQ4 PRN PRN Reason: Shortness of Breath Allopurinol (Zyloprim) 300 mg PO DAILY [facility] Last Admin: 09/11/16 09:30 Dose: 300 mg Duloxetine HCl (Cymbalta) 60 mg PO DAILY [facility] Last Admin: 09/11/16 09:25 Dose: 60 mg Enoxaparin Sodium (Lovenox) 30 mg SC Q12 [facility] PRN Reason: Protocol Gabapentin (Neurontin) 300 mg PO DAILY [facility] Last Admin: 09/11/16 09:30 Dose: 300 mg Home Med (Hydrocodone/Ibuprofen [Hydrocodone-Ibuprofen 7.5-200]) 1 tab PO BID PRN PRN Reason: Pain, moderate (4-7) Ipratropium [place] (Atrovent) 0.5 mg IH RQID [facility] Last Admin: 09/11/16 12:08 Dose: 0.5 mg Loratadine (Claritin) 10 mg PO DAILY [facility] Last Admin: 09/11/16 09:24 Dose: 10 mg Metoprolol Tartrate (Lopressor) 25 mg PO BID [facility] Last Admin: 09/11/16 09:26 Dose: 25 mg Montelukast Sodium (Singulair) 10 mg PO DAILY [facility] Last Admin: 09/11/16 09:30 Dose: 10 mg Oxybutynin Chloride (Ditropan Tab) 10 mg PO DAILY [facility] Last Admin: 09/11/16 09:26 Dose: 10 mg Oxycodone/Acetaminophen (Percocet 5/325 Mg Tab) 1 tab PO Q4 PRN PRN Reason: Pain, moderate (4-7) Stop: 09/14/16 00:15 Last Admin: 09/11/16 09:21 Dose: 1 tab Oxycodone/Acetaminophen (Percocet 5/325 Mg Tab) 2 tab PO Q6 PRN PRN Reason: Pain, severe (8-10) Stop: 09/14/16 00:16 Last Admin: 09/11/16 12:52 Dose: 2 tab Fluticasone/Salmeterol (Advair Diskus 250/50) 1 puff INH BID [facility] Last Admin: 09/11/16 09:22 Dose: 1 inhaler Thyroid ([place] Thyroid) 120 mg PO DAILY [facility] Last Admin: 09/11/16 09:22 Dose: 120 mg Valsartan (Diovan) 320 mg PO DAILY [facility] Last Admin: 09/11/16 09:25 Dose: 320 mg - Labs Labs: 09/11/16 05:20 09/11/16 05:20 PT 10.3 SECONDS (9.6-11.2) 09/09/16 18:30 INR 0.99 (0.92-1.08) 09/09/16 18:30 APTT 26.2 SECONDS (23.3-32.5) 09/09/16 18:30 - Constitutional Appears: Well, Non-toxic, No Acute Distress - Head Exam Head Exam: ATRAUMATIC, NORMAL INSPECTION, NORMOCEPHALIC - Eye Exam Eye Exam: Normal appearance - Neck Exam Neck Exam: Normal Inspection - Respiratory Exam Respiratory Exam: Clear to Ausculation Bilateral, NORMAL BREATHING PATTERN - Cardiovascular Exam Cardiovascular Exam: REGULAR RHYTHM, RRR, +S1, +S2 - GI/Abdominal Exam GI & Abdominal Exam: Soft, Normal Bowel Sounds. absent: Tenderness - Extremities Exam Extremities Exam: Normal Inspection. absent: Calf Tenderness, Pedal Edema Additional comments: right shoulder in dressing, cdi - Neurological Exam Neurological Exam: Alert, Awake, Oriented x3 - Psychiatric Exam Psychiatric exam: Normal Affect, Normal Mood - Skin Skin Exam: Dry, Intact, Normal Color, Warm Assessment and Plan (1) Dyspnea Assessment & Plan: O2 sat normal tachycardia/dyspnea improved CT scan inconclusive for PE, VQ scan low probability Pulmonary consulted, appreciate recommendations Maintain LMWH for DVT prophylaxis while hospitalized and use ASA 325MG daily after discharge. Monitor resp. status Status: Acute (2) S/P rotator cuff repair Assessment & Plan: s/p right shoulder rotator cuff repair POD #[address] Anabelle Ahn consulted, appreciate recommendations Pain control as needed Status: Acute (3) Pulmonary infiltrate present on computed tomography Assessment & Plan: pulmonary consulted, appreciate recommendations Status: Acute (4) Paresthesia Assessment & Plan: Improving Bilateral lower extremities, no motor deficits Neurology consulted, appreciate recommendations u/s for DVTs negative Status: Acute
[2016-09-11] MEDS: Albuterol 0.083% Inhal Sol (2.5 mg/3 mL) UD INH PRN ×2 (15:52→19:28)
[2016-09-11] MEDS: Enoxaparin 30 mg Syringe SC SCH (20:55)
[2016-09-12] MEDS: Oxycodone/Acetaminophen 5/325 mg Tab PO PRN ×4 (02:15→23:38)
[2016-09-12] MEDS: Ipratropium 0.02% Inhal Soln (0.5 mg/2.5 ml) UD IH SCH ×4 (07:12→19:14)
[2016-09-12] MEDS: Fluticasone-Salmeterol 250-50mcg Diskus INH SCH ×2 (09:29→17:12)
[2016-09-12] MEDS: THYROID 30 MG TAB PO SCH (09:30)
[2016-09-12] MEDS: Enoxaparin 30 mg Syringe SC SCH ×2 (09:32→20:52)
--- NOTE | 2016-09-12 09:40 | PN ---
DATE: 09/12/2016 The patient seen and examined. Interim events noted. Consults noted and appreciated. Pulmonary fol lowup and intervention noted and appreciated. Case was discussed with special library librarian yesterday. The patient feels okay, complains of cough, no chest pain or shortness of breath at rest. The patient wa s able to sit in the chair and was able to ambulate around a little bit with physical therapy without any problem. PHYSICAL EXAMINATION: GENERAL: The patient is in no acute distress. VITAL SIGNS: Stable. HEART: S1, S2 normal, regular. LUNGS: Good bilateral air exchange, occasional crepitations. ABDOMEN: Soft, nontender. EXTREMITIES: The patient is status post right shoulder surgery. No edema, no calf swelling, no tend erness, no acute ischemia. CENTRAL NERVOUS SYSTEM: Essentially unchanged. DIAGNOSTIC DATA: Available diagnostic data reviewed. Telemetry monitoring does not reveal significa nt arrhythmia. Overall, the patient is slowly improving. According to the special library librarian, the patient is a low proba bility for pulmonary embolism and symptoms rather are consistent with pneumonia. Will start patient on treatment for same. PLAN: As ordered. Case and plan discussed with patient. Flako Betancourt MD cc: [id number] TT: 09/12/2016 09:39:37 Confirmation # [id number] Dictation # [id number] [email or web address]
[2016-09-12] MEDS: Azithromycin 500 MG in Sodium Chloride 0.9% 250 ML IVPB SCH (10:06)
--- NOTE | 2016-09-12 11:17 | CP.PCM.PN ---
Subjective - Date & Time of Evaluation Date of Evaluation: 09/12/16 Time of Evaluation: 11:15 - Subjective Subjective: S- pt OOB and comfortable in chair Objective - Vital Signs/Intake and Output Vital Signs (last 24 hours): Temp Pulse Resp BP Pulse Ox 98 F 79 18 124/71 97 09/12/16 08:19 09/12/16 09:32 09/12/16 08:19 09/12/16 09:32 09/12/16 08:19 - Medications Medications: Current Medications Albuterol Sulfate (Albuterol 0.083% Inhal April (2.5 Mg/3 Ml) Ud) 2.5 mg INH RQ4 PRN PRN Reason: Shortness of Breath Last Admin: 09/11/16 19:28 Dose: 2.5 mg Allopurinol (Zyloprim) 300 mg PO DAILY [facility] Last Admin: 09/12/16 09:33 Dose: 300 mg Duloxetine HCl (Cymbalta) 60 mg PO DAILY [facility] Last Admin: 09/12/16 09:30 Dose: 60 mg Enoxaparin Sodium (Lovenox) 30 mg SC Q12 [facility] PRN Reason: Protocol Last Admin: 09/12/16 09:32 Dose: 30 mg Gabapentin (Neurontin) 300 mg PO DAILY [facility] Last Admin: 09/12/16 09:33 Dose: 300 mg Home Med (Hydrocodone/Ibuprofen [Hydrocodone-Ibuprofen 7.5-200]) 1 tab PO BID PRN PRN Reason: Pain, moderate (4-7) Azithromycin 500 mg/ Sodium (Chloride) 250 mls @ 250 mls/hr IVPB DAILY [facility] Last Admin: 09/12/16 10:06 Dose: 250 mls/hr Ipratropium [place] (Atrovent) 0.5 mg IH RQID [facility] Last Admin: 09/12/16 11:09 Dose: 0.5 mg Loratadine (Claritin) 10 mg PO DAILY [facility] Last Admin: 09/12/16 09:30 Dose: 10 mg Metoprolol Tartrate (Lopressor) 25 mg PO BID [facility] Last Admin: 09/12/16 09:32 Dose: 25 mg Montelukast Sodium (Singulair) 10 mg PO DAILY [facility] Last Admin: 09/12/16 09:33 Dose: 10 mg Oxybutynin Chloride (Ditropan Tab) 10 mg PO DAILY [facility] Last Admin: 09/12/16 09:31 Dose: 10 mg Oxycodone/Acetaminophen (Percocet 5/325 Mg Tab) 1 tab PO Q4 PRN PRN Reason: Pain, moderate (4-7) Stop: 09/14/16 00:15 Last Admin: 09/12/16 09:28 Dose: 1 tab Oxycodone/Acetaminophen (Percocet 5/325 Mg Tab) 2 tab PO Q6 PRN PRN Reason: Pain, severe (8-10) Stop: 09/14/16 00:16 Last Admin: 09/12/16 02:15 Dose: 2 tab Fluticasone/Salmeterol (Advair Diskus 250/50) 1 puff INH BID [facility] Last Admin: 09/12/16 09:29 Dose: 1 inhaler Thyroid ([place] Thyroid) 120 mg PO DAILY [facility] Last Admin: 09/12/16 09:30 Dose: 120 mg Valsartan (Diovan) 320 mg PO DAILY [facility] Last Admin: 09/12/16 09:31 Dose: 320 mg - Labs Labs: 09/11/16 05:20 09/11/16 05:20 PT 10.3 SECONDS (9.6-11.2) 09/09/16 18:30 INR 0.99 (0.92-1.08) 09/09/16 18:30 APTT 26.2 SECONDS (23.3-32.5) 09/09/16 18:30 - Skin Additional comments: Objective systemic exam- as per Dr Betancourt and Dr Sorensen Hetammy- pt currently wearin g O2 mask systemic exam- pt morbidly obese pt much more comfortable and aware today Assessment and Plan - Assessment and Plan (Free Text) Assessment: A- s/p R shoulder arthroscopy and complex repair P- orthopedically stable agree with DR Sorensen- my impression is that there is low probability of P/E; pt has long hx of breathing disorders and asthma; agree with Rx algorithm as outlined by Dr oSrensen/Dr Betancourt
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
[2016-09-13] MEDS: Oxycodone/Acetaminophen 5/325 mg Tab PO PRN ×3 (05:35→18:15)
[2016-09-13] MEDS: Ipratropium 0.02% Inhal Soln (0.5 mg/2.5 ml) UD IH SCH ×4 (07:58→19:35)
[2016-09-13] MEDS: Fluticasone-Salmeterol 250-50mcg Diskus INH SCH ×2 (08:38→16:32)
[2016-09-13] MEDS: THYROID 30 MG TAB PO SCH (08:39)
[2016-09-13] MEDS: Enoxaparin 30 mg Syringe SC SCH ×2 (08:39→21:59)
[2016-09-13] MEDS: Azithromycin 500 MG in Sodium Chloride 0.9% 250 ML IVPB SCH (08:47)
--- NOTE | 2016-09-13 09:18 | PN ---
DATE: 09/13/2016 The patient seen and examined. Interim events noted. Consults noted, appreciated. Orthopedic follo wup and intervention noted and appreciated. The patient remains in progressive care unit on telemetr y monitoring. The patient feels okay. He was able to sit out of bed to chair and was able to ambula te. The leg pain and numbness also seems to be improving. Shoulder pain is controlled. PHYSICAL EXAMINATION: GENERAL: The patient is in no acute distress. VITAL SIGNS: Stable. HEART: S1, S2 normal, regular. LUNGS: Good bilateral air exchange. ABDOMEN: Soft, nontender. EXTREMITIES: The patient is status post right shoulder surgery. No edema, no calf swelling, no tend erness, no acute ischemia. CENTRAL NERVOUS SYSTEM: Essentially unchanged. DIAGNOSTIC DATA: Available reviewed. Overall, patient's general medical condition is stable and slowly improving. PLAN: As ordered. Flako Betancuort MD cc: [id number] TT: 09/13/2016 09:17:41 Confirmation # [id number] Dictation # [id number]
[2016-09-13] MEDS ORDERED: Oxycodone/Acetaminophen 5/325 mg Tab PO PRN (23:39)
[2016-09-14] MEDS: Oxycodone/Acetaminophen 5/325 mg Tab PO PRN ×4 (01:52→23:42)
[2016-09-14 06:48] LABS: HEMATOCRIT 35.7 % (34.0-47.0); MEAN CELL VOLUME 96.9 fl (81.0-99.0); MEAN CORPUSCULAR HEMOGLOBIN 32.9 pg (27.0-31.0); MEAN CORPUSCULAR HGB CONC 33.9 g/dL (33.0-37.0); RED CELL DISTRIBUTION WIDTH 13.9 % (11.5-14.5); WHITE BLOOD COUNT 7.6 K/uL (4.8-10.8)
[2016-09-14 07:02] LABS: ALB/GLOB RATIO 1.5 (1.0-2.1); ALKALINE PHOSPHATASE 53 U/L (38-126); ALT/SGPT 58 U/L (9-52); AST/SGOT 55 U/L (14-36); BILIRUBIN,TOTAL 0.6 mg/dl (0.2-1.3); BLOOD UREA NITROGEN 18 mg/dl (7-17); CARBON DIOXIDE 30 mmol/L (22-30); CHLORIDE 98 mmol/L (98-107); GFR AFRICAN-AMERICAN > 60; GLUCOSE,RANDOM 83 mg/dL (65-105); POTASSIUM 4.6 MMOL/L (3.6-5.0); SODIUM 135 mmol/l (132-148)
[2016-09-14] MEDS: Ipratropium 0.02% Inhal Soln (0.5 mg/2.5 ml) UD IH SCH ×4 (07:30→19:55)
--- NOTE | 2016-09-14 09:00 | CP.PCM.PN ---
Subjective - Date & Time of Evaluation Date of Evaluation: 09/14/16 Time of Evaluation: 08:47 - Subjective Subjective: Interim events reviewed. Patient has been afebrile, mild leukocytosis has improved. Oxygenating at 96% on room air. She claims to feel improved, able to breathe deeply more comfortably. Using nCPAP at night and CPT device during the daytime. No chest pain , minimal cough. Able to participate with physical therapy. Trace dependant edema of both LE's w/o cyanosis. No calf tenderness or palpable venous cords. No Presley's sign. Neck is supple and trachea is midline. Pharynx is pink and moist. No exudate. Breath sounds are improved in the right base w/o bronchial breathing or egophony. Few dependant dry to medium rales in both LL's posteriorly. No bronchial breath sounds or egophony in the LLL either. Heart sounds are well heard and regular. Appears to clinically have cleared the area of atelectasis/consolidation in the RLL. Continue pn present regimen with antibiotics and CPT. Continue use of nCPAP for JOSHUA. Continue Advair BID and ipratropium via neb QID. Chest x-ray PA and lateral in department today. Continue enoxaparin prophylaxis. Appears stable from a respiratory standpoint, and may be discharged if her CXR shows improvement. Objective - Vital Signs/Intake and Output Vital Signs (last 24 hours): Temp Pulse Resp BP Pulse Ox 98.6 F 78 18 118/69 98 09/14/16 08:09 09/14/16 08:09 09/14/16 08:09 09/14/16 08:09 09/14/16 08:09 Intake and Output: 09/13/16 09/14/16 23:59 11:59 Intake Total 750 600 Balance 750 600 - Medications Medications: Current Medications Albuterol Sulfate (Albuterol 0.083% Inhal April (2.5 Mg/3 Ml) Ud) 2.5 mg INH RQ4 PRN PRN Reason: Shortness of Breath Last Admin: 09/11/16 19:28 Dose: 2.5 mg Allopurinol (Zyloprim) 300 mg PO DAILY [facility] Last Admin: 09/13/16 08:39 Dose: 300 mg Duloxetine HCl (Cymbalta) 60 mg PO DAILY [facility] Last Admin: 09/13/16 08:40 Dose: 60 mg Enoxaparin Sodium (Lovenox) 30 mg SC Q12 [facility] PRN Reason: Protocol Last Admin: 09/13/16 21:59 Dose: 30 mg Gabapentin (Neurontin) 300 mg PO DAILY [facility] Last Admin: 09/13/16 08:40 Dose: 300 mg Home Med (Hydrocodone/Ibuprofen [Hydrocodone-Ibuprofen 7.5-200]) 1 tab PO BID PRN PRN Reason: Pain, moderate (4-7) Azithromycin 500 mg/ Sodium (Chloride) 250 mls @ 250 mls/hr IVPB DAILY [facility] Last Admin: 09/13/16 08:47 Dose: 250 mls/hr Ipratropium [place] (Atrovent) 0.5 mg IH RQID [facility] Last Admin: 09/14/16 07:30 Dose: 0.5 mg Loratadine (Claritin) 10 mg PO DAILY [facility] Last Admin: 09/13/16 08:40 Dose: 10 mg Metoprolol Tartrate (Lopressor) 25 mg PO BID [facility] Last Admin: 09/13/16 16:33 Dose: 25 mg Montelukast Sodium (Singulair) 10 mg PO DAILY [facility] Last Admin: 09/13/16 08:40 Dose: 10 mg Oxybutynin Chloride (Ditropan Tab) 10 mg PO DAILY [facility] Last Admin: 09/13/16 08:41 Dose: 10 mg Oxycodone/Acetaminophen (Percocet 5/325 Mg Tab) 1 tab PO Q4 PRN PRN Reason: Pain, moderate (4-7) Stop: 09/16/16 23:40 Oxycodone/Acetaminophen (Percocet 5/325 Mg Tab) 2 tab PO Q6 PRN PRN Reason: Pain, severe (8-10) Stop: 09/16/16 23:40 Last Admin: 09/14/16 01:52 Dose: 2 tab Fluticasone/Salmeterol (Advair Diskus 250/50) 1 puff INH BID [facility] Last Admin: 09/13/16 16:32 Dose: 1 puff Thyroid ([place] Thyroid) 120 mg PO DAILY [facility] Last Admin: 09/13/16 08:39 Dose: 120 mg Valsartan (Diovan) 320 mg PO DAILY [facility] Last Admin: 09/13/16 08:39 Dose: 320 mg - Labs Labs: 09/14/16 05:45 09/14/16 05:45 PT 10.3 SECONDS (9.6-11.2) 09/09/16 18:30 INR 0.99 (0.92-1.08) 09/09/16 18:30 APTT 26.2 SECONDS (23.3-32.5) 09/09/16 18:30 Assessment and Plan (1) Pulmonary infiltrate present on computed tomography Status: Acute (2) Pneumonia Status: Acute (3) Atelectasis Status: Acute (4) Asthma dependent on inhaled steroids Status: Chronic
--- NOTE | 2016-09-14 09:35 | PN ---
DATE: 09/14/2016 The patient seen and examined. Interim events noted. Consults noted, appreciated. The patient michelle ins in progressive care unit on telemetry monitoring. Feels a little better. Coughing a little less . Numbness in the legs improved. No chest pain or shortness of breath. PHYSICAL EXAMINATION: GENERAL: The patient is in no acute distress. VITAL SIGNS: Stable. HEART: S1, S2 normal, regular. LUNGS: Improved bilateral air exchange. ABDOMEN: Soft, nontender. EXTREMITIES: No edema, no calf swelling, no tenderness, no acute ischemia. CENTRAL NERVOUS SYSTEM: Essentially unchanged. DIAGNOSTIC DATA: Available reviewed. Telemetry monitoring does not reveal significant arrhythmia. Overall, patient's general medical condition is stable and improving. PLAN: As ordered. Flako Betancourt MD cc: [id number] TT: 09/14/2016 09:35:21 Confirmation # [id number] Dictation # [id number]
[2016-09-14] MEDS: Azithromycin 500 MG in Sodium Chloride 0.9% 250 ML IVPB SCH (10:14)
[2016-09-14] MEDS: THYROID 30 MG TAB PO SCH (10:28)
[2016-09-14] MEDS: Enoxaparin 30 mg Syringe SC SCH ×2 (10:30→21:25)
[2016-09-14] MEDS: Fluticasone-Salmeterol 250-50mcg Diskus INH SCH ×2 (10:30→17:15)
--- NOTE | 2016-09-14 11:10 | RAD ---
HISTORY: f/u COMPARISON: Comparison made with prior chest radiograph 09/09/2016. TECHNIQUE: Chest PA and lateral FINDINGS: LUNGS: Re- demonstrated is persistent right lower lobe opacity though slightly improved from prior study felt to represent atelectasis. Elevation right hemidiaphragm possibly due to eventration contributes to the opacity PLEURA: No significant pleural effusion identified. No pneumothorax apparent. CARDIOVASCULAR: Normal. OSSEOUS STRUCTURES: No significant abnormalities. VISUALIZED UPPER ABDOMEN: Normal. OTHER FINDINGS: None. IMPRESSION: Re- demonstrated is persistent right lower lobe opacity though slightly improved from prior study felt to represent atelectasis. Elevation right hemidiaphragm possibly due to eventration contributes to the opacity
[2016-09-14] MEDS: Albuterol 0.083% Inhal Sol (2.5 mg/3 mL) UD INH PRN (22:50)
[2016-09-15] MEDS: Oxycodone/Acetaminophen 5/325 mg Tab PO PRN ×3 (06:47→20:39)
[2016-09-15] MEDS: Ipratropium 0.02% Inhal Soln (0.5 mg/2.5 ml) UD IH SCH ×4 (09:00→20:17)
[2016-09-15] MEDS: Fluticasone-Salmeterol 250-50mcg Diskus INH SCH ×2 (09:18→16:20)
[2016-09-15] MEDS: Enoxaparin 30 mg Syringe SC SCH ×2 (09:18→20:43)
[2016-09-15] MEDS: THYROID 30 MG TAB PO SCH (09:19)
--- NOTE | 2016-09-15 11:05 | CP.PCM.PN ---
Subjective - Date & Time of Evaluation Date of Evaluation: 09/15/16 Time of Evaluation: 11:01 - Subjective Subjective: Sitting up in bed when seen on rounds. Appears comfortable at the present time. Review of medical records shows an episode of shortness of breath which occurred yesterday evening. The patient claims this was associated with increased activity and was transient, responding to inhalation therapy. Vital signs have remained stable and the patient is well oxygenated. Physical exam shows increasing breath sounds heard in the right lower lobe posteriorly as well as few dry to medium rales and sonorous rhonchi. No audible wheezing or bronchial breathing. Patient relates history of having elevated right hemidiaphragm seen on prior chest x-rays done as an outpatient at least one year prior. Repeat chest x-ray done yesterday showed some improvement in the expansion of the right lower lung field. We will continue with current medical regimen and increasing activity has tolerated. Continue with prophylactic dosing of enoxaparin while an inpatient and changing to 325 mg of aspirin once daily after discharge. Objective - Vital Signs/Intake and Output Vital Signs (last 24 hours): Temp Pulse Resp BP Pulse Ox 98.1 F 77 18 125/75 93 L 09/15/16 08:00 09/15/16 09:20 09/15/16 08:00 09/15/16 09:20 09/15/16 08:00 Intake and Output: 09/14/16 09/15/16 23:59 11:59 Intake Total 360 Output Total 300 Balance 60 - Medications Medications: Current Medications Albuterol Sulfate (Albuterol 0.083% Inhal April (2.5 Mg/3 Ml) Ud) 2.5 mg INH RQ4 PRN PRN Reason: Shortness of Breath Last Admin: 09/14/16 22:50 Dose: 2.5 mg Allopurinol (Zyloprim) 300 mg PO DAILY [facility] Last Admin: 09/15/16 09:20 Dose: 300 mg Duloxetine HCl (Cymbalta) 60 mg PO DAILY [facility] Last Admin: 09/15/16 09:21 Dose: 60 mg Enoxaparin Sodium (Lovenox) 30 mg SC Q12 [facility] PRN Reason: Protocol Last Admin: 09/15/16 09:18 Dose: 30 mg Gabapentin (Neurontin) 300 mg PO DAILY [facility] Last Admin: 09/15/16 09:21 Dose: 300 mg Home Med (Hydrocodone/Ibuprofen [Hydrocodone-Ibuprofen 7.5-200]) 1 tab PO BID PRN PRN Reason: Pain, moderate (4-7) Ipratropium [place] (Atrovent) 0.5 mg IH RQID [facility] Last Admin: 09/15/16 09:00 Dose: 0.5 mg Loratadine (Claritin) 10 mg PO DAILY [facility] Last Admin: 09/15/16 09:20 Dose: 10 mg Metoprolol Tartrate (Lopressor) 25 mg PO BID [facility] Last Admin: 09/15/16 09:20 Dose: 25 mg Montelukast Sodium (Singulair) 10 mg PO DAILY [facility] Last Admin: 09/15/16 09:20 Dose: 10 mg Oxybutynin Chloride (Ditropan Tab) 10 mg PO DAILY [facility] Last Admin: 09/15/16 09:19 Dose: 10 mg Oxycodone/Acetaminophen (Percocet 5/325 Mg Tab) 1 tab PO Q4 PRN PRN Reason: Pain, moderate (4-7) Stop: 09/16/16 23:40 Oxycodone/Acetaminophen (Percocet 5/325 Mg Tab) 2 tab PO Q6 PRN PRN Reason: Pain, severe (8-10) Stop: 09/16/16 23:40 Last Admin: 09/15/16 06:47 Dose: 2 tab Fluticasone/Salmeterol (Advair Diskus 250/50) 1 puff INH BID [facility] Last Admin: 09/15/16 09:18 Dose: 1 puff Thyroid ([place] Thyroid) 120 mg PO DAILY [facility] Last Admin: 09/15/16 09:19 Dose: 120 mg Valsartan (Diovan) 320 mg PO DAILY [facility] Last Admin: 09/15/16 09:19 Dose: 320 mg - Labs Labs: 09/14/16 05:45 09/14/16 05:45 PT 10.3 SECONDS (9.6-11.2) 09/09/16 18:30 INR 0.99 (0.92-1.08) 09/09/16 18:30 APTT 26.2 SECONDS (23.3-32.5) 09/09/16 18:30 Assessment and Plan (1) Pulmonary infiltrate present on computed tomography Status: Acute (2) Pneumonia Status: Acute (3) Atelectasis Status: Acute (4) Asthma dependent on inhaled steroids Status: Chronic
--- NOTE | 2016-09-15 15:55 | CP.PCM.PN ---
Subjective - Date & Time of Evaluation Date of Evaluation: 09/15/16 Time of Evaluation: 07:55 - Subjective Subjective: Patient seen and evaluated at bedside with attending. No acute events overnight. Numbness of feet continue to improve. Cough improved. No sob/chest pain. Afebrile. No fever/chills. Patient with allergic like reaction of right neck/shoulder. Unknown cause though azithromax discontinued for this reason Objective - Vital Signs/Intake and Output Vital Signs (last 24 hours): Temp Pulse Resp BP Pulse Ox 99.7 F H 80 20 135/76 95 09/15/16 15:39 09/15/16 15:39 09/15/16 15:39 09/15/16 15:39 09/15/16 15:39 Intake and Output: 09/15/16 09/15/16 06:59 18:59 Intake Total 360 Output Total 300 Balance 60 - Medications Medications: Current Medications Albuterol Sulfate (Albuterol 0.083% Inhal April (2.5 Mg/3 Ml) Ud) 2.5 mg INH RQ4 PRN PRN Reason: Shortness of Breath Last Admin: 09/14/16 22:50 Dose: 2.5 mg Allopurinol (Zyloprim) 300 mg PO DAILY [facility] Last Admin: 09/15/16 09:20 Dose: 300 mg Duloxetine HCl (Cymbalta) 60 mg PO DAILY [facility] Last Admin: 09/15/16 09:21 Dose: 60 mg Enoxaparin Sodium (Lovenox) 30 mg SC Q12 [facility] PRN Reason: Protocol Last Admin: 09/15/16 09:18 Dose: 30 mg Gabapentin (Neurontin) 300 mg PO DAILY [facility] Last Admin: 09/15/16 09:21 Dose: 300 mg Home Med (Hydrocodone/Ibuprofen [Hydrocodone-Ibuprofen 7.5-200]) 1 tab PO BID PRN PRN Reason: Pain, moderate (4-7) Ipratropium [place] (Atrovent) 0.5 mg IH RQID [facility] Last Admin: 09/15/16 13:50 Dose: 0.5 mg Loratadine (Claritin) 10 mg PO DAILY [facility] Last Admin: 09/15/16 09:20 Dose: 10 mg Metoprolol Tartrate (Lopressor) 25 mg PO BID [facility] Last Admin: 09/15/16 09:20 Dose: 25 mg Montelukast Sodium (Singulair) 10 mg PO DAILY [facility] Last Admin: 09/15/16 09:20 Dose: 10 mg Oxybutynin Chloride (Ditropan Tab) 10 mg PO DAILY [facility] Last Admin: 09/15/16 09:19 Dose: 10 mg Oxycodone/Acetaminophen (Percocet 5/325 Mg Tab) 1 tab PO Q4 PRN PRN Reason: Pain, moderate (4-7) Stop: 09/16/16 23:40 Oxycodone/Acetaminophen (Percocet 5/325 Mg Tab) 2 tab PO Q6 PRN PRN Reason: Pain, severe (8-10) Stop: 09/16/16 23:40 Last Admin: 09/15/16 14:13 Dose: 2 tab Fluticasone/Salmeterol (Advair Diskus 250/50) 1 puff INH BID [facility] Last Admin: 09/15/16 09:18 Dose: 1 puff Thyroid ([place] Thyroid) 120 mg PO DAILY [facility] Last Admin: 09/15/16 09:19 Dose: 120 mg Valsartan (Diovan) 320 mg PO DAILY [facility] Last Admin: 09/15/16 09:19 Dose: 320 mg - Labs Labs: 09/14/16 05:45 09/14/16 05:45 PT 10.3 SECONDS (9.6-11.2) 09/09/16 18:30 INR 0.99 (0.92-1.08) 09/09/16 18:30 APTT 26.2 SECONDS (23.3-32.5) 09/09/16 18:30 - Constitutional Appears: Well, Non-toxic, No Acute Distress - Head Exam Head Exam: ATRAUMATIC, NORMAL INSPECTION, NORMOCEPHALIC - Eye Exam Eye Exam: Normal appearance - Neck Exam Neck Exam: Normal Inspection - Respiratory Exam Respiratory Exam: Clear to Ausculation Bilateral, NORMAL BREATHING PATTERN - Cardiovascular Exam Cardiovascular Exam: REGULAR RHYTHM, +S1, +S2. absent: Murmur - GI/Abdominal Exam GI & Abdominal Exam: Soft, Normal Bowel Sounds. absent: Tenderness - Extremities Exam Extremities Exam: Normal Inspection Additional comments: right shoulder in dressing - Neurological Exam Neurological Exam: Alert, Awake, Oriented x3 - Psychiatric Exam Psychiatric exam: Normal Affect, Normal Mood - Skin Skin Exam: Dry, Intact, Normal Color, Warm Assessment and Plan (1) Dyspnea Assessment & Plan: O2 sat normal tachycardia/dyspnea improved CT scan inconclusive for P VQ scan low probability Pulmonary consulted, appreciate recommendations Maintain LMWH for DVT prophylaxis while hospitalized and use ASA 325MG daily after discharge. Monitor resp. status Status: Acute (2) S/P rotator cuff repair Assessment & Plan: s/p right shoulder rotator cuff repair with Dr. Anabelle Ahn on board, appreciate recommendations Pain control as needed PT eval Status: Acute (3) Pulmonary infiltrate present on computed tomography Assessment & Plan: Repeat CXR notes improvement Pulmonary on board, appreciate recommendation on antibiotics if necessary due to patient's extensive allergies Status: Acute (4) Paresthesia Assessment & Plan: Continue to improve Continue current management Status: Acute
[2016-09-15] MEDS: Albuterol 0.083% Inhal Sol (2.5 mg/3 mL) UD INH PRN (20:17)
[2016-09-15] MEDS: Tmp-Smz 800 mg-160 mg DS Tab PO SCH (20:40)
[2016-09-16] MEDS: Oxycodone/Acetaminophen 5/325 mg Tab PO PRN (05:21)
[2016-09-16 08:17] VITALS: RESP 20
[2016-09-16] MEDS: THYROID 30 MG TAB PO SCH (09:26)
[2016-09-16] MEDS: Fluticasone-Salmeterol 250-50mcg Diskus INH SCH (09:26)
[2016-09-16] MEDS: Ipratropium 0.02% Inhal Soln (0.5 mg/2.5 ml) UD IH SCH ×2 (09:30→12:00)
[2016-09-16] MEDS: Enoxaparin 30 mg Syringe SC SCH (09:30)
[2016-09-16] MEDS: Tmp-Smz 800 mg-160 mg DS Tab PO SCH (09:32)
--- NOTE | 2016-09-16 11:39 | CP.PCM.PN ---
Subjective - Date & Time of Evaluation Date of Evaluation: 09/16/16 Time of Evaluation: 11:39 Objective - Vital Signs/Intake and Output Vital Signs (last 24 hours): Temp Pulse Resp BP Pulse Ox 97.9 F 74 20 158/78 H 95 09/16/16 08:00 09/16/16 09:29 09/16/16 08:00 09/16/16 09:29 09/16/16 08:00 Intake and Output: 09/15/16 09/16/16 23:59 11:59 Intake Total 240 Balance 240 - Medications Medications: Current Medications Albuterol Sulfate (Albuterol 0.083% Inhal April (2.5 Mg/3 Ml) Ud) 2.5 mg INH RQ4 PRN PRN Reason: Shortness of Breath Last Admin: 09/15/16 20:17 Dose: 2.5 mg Allopurinol (Zyloprim) 300 mg PO DAILY [facility] Last Admin: 09/16/16 09:31 Dose: 300 mg Duloxetine HCl (Cymbalta) 60 mg PO DAILY [facility] Last Admin: 09/16/16 09:32 Dose: 60 mg Enoxaparin Sodium (Lovenox) 30 mg SC Q12 [facility]ING PRN Reason: Protocol Last Admin: 09/16/16 09:30 Dose: 30 mg Gabapentin (Neurontin) 300 mg PO DAILY [facility] Last Admin: 09/16/16 09:30 Dose: 300 mg Home Med (Hydrocodone/Ibuprofen [Hydrocodone-Ibuprofen 7.5-200]) 1 tab PO BID PRN PRN Reason: Pain, moderate (4-7) Ipratropium [place] (Atrovent) 0.5 mg IH RQID [facility] Last Admin: 09/16/16 09:30 Dose: 0.5 mg Loratadine (Claritin) 10 mg PO DAILY [facility] Last Admin: 09/16/16 09:32 Dose: 10 mg Metoprolol Tartrate (Lopressor) 25 mg PO BID [facility] Last Admin: 09/16/16 09:29 Dose: 25 mg Montelukast Sodium (Singulair) 10 mg PO DAILY [facility] Last Admin: 09/16/16 09:30 Dose: 10 mg Oxybutynin Chloride (Ditropan Tab) 10 mg PO DAILY [facility] Last Admin: 09/16/16 09:28 Dose: 10 mg Oxycodone/Acetaminophen (Percocet 5/325 Mg Tab) 1 tab PO Q4 PRN PRN Reason: Pain, moderate (4-7) Stop: 09/16/16 23:40 Oxycodone/Acetaminophen (Percocet 5/325 Mg Tab) 2 tab PO Q6 PRN PRN Reason: Pain, severe (8-10) Stop: 09/16/16 23:40 Last Admin: 09/16/16 05:21 Dose: 2 tab Fluticasone/Salmeterol (Advair Diskus 250/50) 1 puff INH BID [facility] Last Admin: 09/16/16 09:26 Dose: 1 puff Thyroid ([place] Thyroid) 120 mg PO DAILY [facility] Last Admin: 09/16/16 09:26 Dose: 120 mg Trimethoprim/Sulfamethoxazole (Bactrim Ds Tab) 1 tab PO Q12 [facility] Stop: 09/22/16 21:00 Last Admin: 09/16/16 09:32 Dose: 1 tab Valsartan (Diovan) 320 mg PO DAILY [facility] Last Admin: 09/16/16 09:31 Dose: 320 mg - Labs Labs: 09/14/16 05:45 09/14/16 05:45 PT 10.3 SECONDS (9.6-11.2) 09/09/16 18:30 INR 0.99 (0.92-1.08) 09/09/16 18:30 APTT 26.2 SECONDS (23.3-32.5) 09/09/16 18:30 Assessment and Plan (1) Pulmonary infiltrate present on computed tomography Status: Acute (2) Pneumonia Status: Acute (3) Atelectasis Status: Acute (4) Asthma dependent on inhaled steroids Status: Chronic
[2016-09-16 12:51] VITALS: BP 156/84; PULSE 71; TEMP 98.2; O2SAT 94
--- NOTE | 2016-09-16 13:37 | RAD ---
PROCEDURE: CHEST RADIOGRAPH, 1 VIEW HISTORY: atelectasis COMPARISON: 09/14/2016. FINDINGS: LUNGS: Right lower lobe right middle lobe infiltrate. PLEURA: No pneumothorax or pleural fluid seen. CARDIOVASCULAR: No radiographic findings to suggest acute or significant cardiovascular disease. OSSEOUS STRUCTURES: No significant abnormalities. VISUALIZED UPPER ABDOMEN: Normal. OTHER FINDINGS: None. IMPRESSION: No significant interval change compared to the prior examination(s).
--- NOTE | 2016-09-16 14:45 | CP.PCM.DIS ---
Provider - Provider Date of Admission: 09/10/16 11:02 Attending physician: Flako Betancourt MD Time Spent in preparation of Discharge (in minutes): 30 Diagnosis - Discharge Diagnosis (1) Dyspnea Status: Acute (2) S/P rotator cuff repair Status: Acute (3) Pulmonary infiltrate present on computed tomography Status: Acute Priority: High (4) Paresthesia Status: Acute Hospital Course - Lab Results Lab Results: Most Recent Lab Values WBC 7.6 K/uL (4.8-10.8) 09/14/16 05:45 RBC 3.68 Mil/uL (3.80-5.20) L 09/14/16 05:45 Hgb 12.1 g/dL (12.0-16.0) 09/14/16 05:45 Hct 35.7 % (34.0-47.0) 09/14/16 05:45 MCV 96.9 fl (81.0-99.0) 09/14/16 05:45 MCH 32.9 pg (27.0-31.0) H 09/14/16 05:45 MCHC 33.9 g/dL (33.0-37.0) 09/14/16 05:45 RDW 13.9 % (11.5-14.5) 09/14/16 05:45 Plt Count 171 K/uL (130-400) 09/14/16 05:45 MPV 8.6 fl (7.2-11.7) 09/09/16 18:30 Neut % (Auto) 94.9 % (50.0-75.0) H 09/09/16 18:30 Lymph % (Auto) 3.2 % (20.0-40.0) L 09/09/16 18:30 [place] % (Auto) 1.4 % (0.0-10.0) 09/09/16 18:30 Eos % (Auto) 0.0 % (0.0-4.0) 09/09/16 18:30 Baso % (Auto) 0.5 % (0.0-2.0) 09/09/16 18:30 Neut # 11.3 K/uL (1.8-7.0) H 09/09/16 18:30 Lymph # 0.4 K/uL (1.0-4.3) L 09/09/16 18:30 [place] # 0.2 K/uL (0.0-0.8) 09/09/16 18:30 Eos # 0.0 K/uL (0.0-0.7) 09/09/16 18:30 Baso # 0.1 K/uL (0.0-0.2) 09/09/16 18:30 Neutrophils % (Manual) 90 % (42-75) H 09/09/16 18:30 Lymphocytes % (Manual) 6 % (20-50) L 09/09/16 18:30 Monocytes % (Manual) 4 % (0-10) 09/09/16 18:30 Toxic Granulation Present 09/09/16 18:30 Platelet Estimate Normal (NORMAL) 09/09/16 18:30 Large Platelets Present 09/09/16 18:30 Macrocytosis (manual) Slight 09/09/16 18:30 PT 10.3 SECONDS (9.6-11.2) 09/09/16 18:30 INR 0.99 (0.92-1.08) 09/09/16 18:30 APTT 26.2 SECONDS (23.3-32.5) 09/09/16 18:30 pCO2 38 mm/Hg (35-45) 09/09/16 18:10 pO2 61 mm/Hg (80-100) L 09/09/16 18:10 HCO3 25.6 mmol/L (21-28) 09/09/16 18:10 ABG pH 7.43 (7.35-7.45) 09/09/16 18:10 ABG Total CO2 26.4 mmol/L (22-28) 09/09/16 18:10 ABG O2 Saturation 96.2 % (95-98) 09/09/16 18:10 ABG Base Excess 1.0 mmol/L (-2.0-3.0) 09/09/16 18:10 Oskar Test Yes 09/09/16 18:10 ABG Potassium 4.4 mmol/L (3.6-5.2) 09/09/16 18:10 A-a O2 Difference 120.0 mm/Hg 09/09/16 18:10 Sodium 129.0 mmol/L (132-148) L 09/09/16 18:10 Chloride 96.0 mmol/L (98-107) L 09/09/16 18:10 Glucose 161 mg/dL (65-105) H 09/09/16 18:10 Lactate 2.5 mmol/L (0.7-2.1) H 09/09/16 18:10 Vent Mode 3l nc 09/09/16 18:10 FiO2 32.0 % 09/09/16 18:10 Sodium 135 mmol/l (132-148) 09/14/16 05:45 Potassium 4.6 MMOL/L (3.6-5.0) 09/14/16 05:45 Chloride 98 mmol/L (98-107) 09/14/16 05:45 Carbon Dioxide 30 mmol/L (22-30) 09/14/16 05:45 Anion Gap 12 (10-20) 09/14/16 05:45 BUN 18 mg/dl (7-17) H 09/14/16 05:45 Creatinine 0.7 mg/dL (0.7-1.2) 09/14/16 05:45 Est GFR ( Amer) > 60 09/14/16 05:45 Est GFR (Non-Af Amer) > 60 09/14/16 05:45 Random Glucose 83 mg/dL (65-105) 09/14/16 05:45 Calcium 9.0 mg/dL (8.4-10.2) 09/14/16 05:45 Total Bilirubin 0.6 mg/dl (0.2-1.3) 09/14/16 05:45 AST 55 U/L (14-36) H D 09/14/16 05:45 ALT 58 U/L (9-52) H 09/14/16 05:45 Alkaline Phosphatase 53 U/L (38-126) 09/14/16 05:45 Troponin I < 0.0120 ng/mL (0.00-0.120) 09/09/16 18:30 NT-Pro-B Natriuret Pep 532 pg/ml (0-900) 09/09/16 18:30 Total Protein 6.0 G/DL (6.3-8.2) L 09/14/16 05:45 Albumin 3.5 g/dL (3.5-5.0) 09/14/16 05:45 Globulin 2.4 gm/dL (2.2-3.9) 09/14/16 05:45 Albumin/Globulin Ratio 1.5 (1.0-2.1) 09/14/16 05:45 Vitamin B12 875 pg/mL (239-931) 09/11/16 05:20 Arterial Blood Potassium 4.4 mmol/L (3.6-5.2) 09/09/16 18:10 - Hospital Course Hospital Course: 66 year old female w/ PMHx of luciana disease, hypertension, herniated discs, degenerative disc disease and arthritis, who presented to the ED for evaluation of bilateral foot numbness and lower back pain after right rotator cuff repair surgery (Dr. Ahn) earlier that day, found to be hypoxic and tachycardic. CTA of chest was obtained, though inconclusive. Patient was admitted to telemetry unit and started on therapeutic lovenox. Pulmonary was consulted. VQ scan obtained, low probability. Lovenox changed to prophylaxis dose. Patient was found to have infiltrate of RLL, treated with Azithromycin. Patient's numbness was evaluated by Neurology. Patient overall improvement during admission. Patient was also evaluated by Dr. Ahn post-operatively. Pain was well controlled. Patient participated in PT during admission. Discharge to [facility] for further rehabilitation. Discharge Exam - Head Exam Head Exam: ATRAUMATIC, NORMAL INSPECTION, NORMOCEPHALIC - Eye Exam Eye Exam: Normal appearance - Respiratory Exam Respiratory Exam: Clear to PA & Lateral, NORMAL BREATHING PATTERN, UNREMARKABLE - Cardiovascular Exam Cardiovascular Exam: REGULAR RHYTHM, RRR, +S1, +S2 - GI/Abdominal Exam GI & Abdominal Exam: Normal Bowel Sounds, Soft, Unremarkable - Extremities Exam Extremities exam: normal inspection Additional comments: right shoulder dressing c/d/i - Neurological Exam Neurological exam: Alert, Oriented x3 - Psychiatric Exam Psychiatric exam: Normal Affect, Normal Mood - Skin Skin Exam: Dry, Intact, Normal Color, Warm Discharge Plan - Follow Up Plan Condition: FAIR Disposition: REHAB FACILITY/REHAB UNIT Instructions: Rotator Cuff Tear Repair (DC) Additional Instructions: patient cleared for discharge to [facility] today by Dr.Kozel Kamaljit Mari will f/u with patient at the [facility] f/u with upon discharge from rehab, switch lovenox to Aspirin 325 mg po daily Referrals: Flako Betancourt MD [Staff Provider] - Johnson Ahn III, MD [Staff Provider] -
== END 2016-09-16 13:34 | DRG 194 ==
LOC: H.ER 17:43 → H.ERHOLD 20:52 → H.TEL 22:52 → OBSVTOIN 09-10 11:02
PROVIDERS: ADMIT Internal Medicine; ATTEND Internal Medicine
DX: J18.9 Pneumonia, unspecified organism (principal); J98.11 Atelectasis; E66.01 Morbid (severe) obesity due to excess calories; I10 Essential (primary) hypertension; G62.9 Polyneuropathy, unspecified; M50.20 Other cervical disc displacement, unspecified cervical region; E06.3 Autoimmune thyroiditis; G47.33 Obstructive sleep apnea (adult) (pediatric); G89.29 Other chronic pain; I34.1 Nonrheumatic mitral (valve) prolapse; J45.909 Unspecified asthma, uncomplicated; M54.10 Radiculopathy, site unspecified; R09.02 Hypoxemia; Z79.899 Other long term (current) drug therapy; Z90.710 Acquired absence of both cervix and uterus; Z96.653 Presence of artificial knee joint, bilateral; M51.36 Other intervertebral disc degeneration, lumbar region; M19.90 Unspecified osteoarthritis, unspecified site; M54.5 Low back pain; R51 Headache; R20.0 Anesthesia of skin; R00.0 Tachycardia, unspecified; M51.26 Other intervertebral disc displacement, lumbar region; Z88.1 Allergy status to other antibiotic agents; Z91.040 Latex allergy status; Z88.0 Allergy status to penicillin; Z91.013 Allergy to seafood; Z91.018 Allergy to other foods; R53.81 Other malaise; D72.829 Elevated white blood cell count, unspecified; Z68.31 Body mass index [BMI] 31.0-31.9, adult